=== PATIENT | female | born 1975 | race Caucasian/White ===

== ENCOUNTER 2017-01-26 18:41 | Emergency (ER) | payer BC ==
[~2017-01-26] VITALS: Ht 162.6 cm; Wt 48.7 kg
[~2017-01-26 18:41] MED LIST: LBT/100 PO; MTR600X PO; PRENTAB26 PO
[2017-01-26 18:43] VITALS: TEMP 37; Ht 162.6 cm; Wt 48.7 kg
[2017-01-26] MEDS ORDERED: SODIUM CHLORIDE 0.9% 1000ML 1,000 ML IV STA (19:20)
--- NOTE | 2017-01-26 19:22 | EMERGENCY ROOM VISIT NOTE ---
History Report prepared by Adelso: Sherlyn Simmons Under the Supervision of: Dr. Ciro Fitch M.D. First contact with patient: 18:48 Chief Complaint: HYPERTENSION Stated Complaint: TIGHT CHEST, HTN, DIZZY, SHAKEY, PELVIC/BACK PAIN History of Present Illness The patient is a 41 year old female who presents to the Emergency Room with complaints of persistent hypertension over the past several days. The patient has a 19 year history of hypertension and is currently medicated with atenolol and another medication that she cannot remember. She follows with her PCP regularly, most recently 5 days ago, and did not have any medication changes. Her blood pressure was normal at that time. With medication, her systolic blood pressure is between 120-130; however, it has been between 160-190 over the past several days. She notes that she has had sporadic increases in her blood pressure over the past month. She has not had any changes in her routine this week. About 3 hours ago, the patient developed constant chest tightness that radiates through her back. It does not worsen significantly with deep breaths. She also developed some dizziness at that time which has mostly subsided. The patient has a history of anxiety and notes that these symptoms do feel similar to prior anxiety attacks. She has not eaten much today due to not feeling well. She has been feeling mildly nauseous. She does not have any out of the ordinary stress. She denies chance of . She is not breast feeding. Denies recent travel, headache, shortness of breath, vomiting or other complaints. No personal history of blood clots. She is not on control. She is not a smoker. Source of History: patient Onset: several days ago Position: other (Global) Symptom Intensity: systolic 160-190 Quality: other (hypertension) Timing: other (persistent) Associated Symptoms: + nausea, No SOB, No headache, No vomiting Note: Other symptoms: chest tightness, dizziness Review of Systems See HPI for pertinent positives & negatives. A total of 10 systems reviewed and were otherwise negative. Past Medical & Surgical Medical Problems: (1) HTN (hypertension) Old medical records were reviewed. Nurse's notes were reviewed and I agree with. Family History No pertinent family history stated. Social History Smoking Status: Former Smoker Marital Status: Housing Status: lives with family Current/Historical Medications Scheduled Atenolol (Tenormin), 25 MG PO DAILY Benazepril (Lotensin), 20 MG PO DAILY Allergies Coded Allergies: Amoxicillin (Verified Allergy, Severe, HIVES, 01/26/17) Sulfa Antibiotics (Verified Allergy, Unknown, HIVES, 01/26/17) Physical Exam Vital Signs Date Time Temp Pulse Resp B/P Pulse Ox O2 Delivery O2 Flow Rate FiO2 01/26/17 21:11 88 18 132/87 98 Room Air 01/26/17 20:42 79 01/26/17 20:26 87 18 130/91 99 Room Air 01/26/17 19:36 76 18 141/93 100 Room Air 01/26/17 19:26 98 Room Air 01/26/17 18:43 37.0 95 16 160/92 99 Room Air Physical Exam General: Non-ill appearing middle aged female. Well developed well nourished in no acute distress, breathing comfortably on room air. Normal speech HEENT: Normal cephalic atraumatic. Pupils are equal round and reactive to light. Sclerae are anicteric. Extraocular movements are intact. Oropharynx is pink with moist mucous membranes. No swelling of the mouth lips or tongue. Neck: Supple with a midline trachea. No meningeal signs or stiffness, no JVD or bruits. No Stridor. Chest: Clear to auscultation bilaterally. No wheezes or rhonchi. No increased work of breathing. Heart: regular rate and rhythm. Abdomen: Soft nontender, nondistended without rebound guarding or rigidity. Extremities: No cyanosis clubbing or edema. No calf tenderness or assymetry Spine/Back. Non tender to palpation. No CVA tenderness Skin: Good turgor without rashes. Neurologic exam: Cranial nerves two through 12 are intact. Motor and sensation are intact and symmetrical throughout. Medical Decision & Procedures ER Provider Diagnostic Interpretation: Radiology results as stated below per my review and radiologist interpretation: CHEST ONE VIEW PORTABLE CLINICAL HISTORY: Atypical chest pain, hypertension, dizziness, shakiness. COMPARISON STUDY: No previous studies for comparison. FINDINGS: The cardiac and mediastinal contours are normal. There is no evidence of focal pulmonary consolidation. There is no evidence of failure. No pleural effusions are visualized.[ IMPRESSION: No active disease in the chest. Electronically signed by: Rakesh Santiago M.D. 01/26/2017 7:41 PM Dictated Date/Time: 01/26/2017 7:41 PM Laboratory Results 01/26/17 19:25 Red Blood Count 4.43, Mean Corpuscular Volume 86.2, Mean Corpuscular Hemoglobin 30.2, Mean Corpuscular Hemoglobin Concent 35.1, Mean Platelet Volume 12.6, Neutrophils (%) (Auto) 82.9, Lymphocytes (%) (Auto) 10.2, Monocytes (%) (Auto) 6.5, Eosinophils (%) (Auto) 0.2, Basophils (%) (Auto) 0.1, Neutrophils # (Auto) 7.52, Lymphocytes # (Auto) 0.93, Monocytes # (Auto) 0.59, Eosinophils # (Auto) 0.02, Basophils # (Auto) 0.01 01/26/17 19:25 Test 01/26/17 19:25 01/26/17 19:39 White Blood Count 9.08 K/uL (4.8-10.8) Red Blood Count 4.43 M/uL (4.2-5.4) Hemoglobin 13.4 g/dL (12.0-16.0) Hematocrit 38.2 % (37-47) Mean Corpuscular Volume 86.2 fL (80-100) Mean Corpuscular Hemoglobin 30.2 pg (25-34) Mean Corpuscular Hemoglobin Concent 35.1 g/dl (32-36) Platelet Count 117 K/uL (130-400) Mean Platelet Volume 12.6 fL (7.4-10.4) Neutrophils (%) (Auto) 82.9 % Lymphocytes (%) (Auto) 10.2 % Monocytes (%) (Auto) 6.5 % Eosinophils (%) (Auto) 0.2 % Basophils (%) (Auto) 0.1 % Neutrophils # (Auto) 7.52 K/uL (1.4-6.5) Lymphocytes # (Auto) 0.93 K/uL (1.2-3.4) Monocytes # (Auto) 0.59 K/uL (0.11-0.59) Eosinophils # (Auto) 0.02 K/uL (0-0.5) Basophils # (Auto) 0.01 K/uL (0-0.2) RDW Standard Deviation 39.2 fL (36.4-46.3) RDW Coefficient of Variation 12.3 % (11.5-14.5) Immature Granulocyte % (Auto) 0.1 % Immature Granulocyte # (Auto) 0.01 K/uL (0.00-0.02) Platelet Estimate DECREASED Echinocytes 1+ Anion Gap 14.0 mmol/L (3-11) Est Creatinine Clear Calc Drug Dose 88.9 ml/min Estimated GFR () 128.5 Estimated GFR (Non- 110.8 BUN/Creatinine Ratio 14.4 (10-20) Calcium Level 9.3 mg/dl (8.5-10.1) Total Bilirubin 0.3 mg/dl (0.2-1) Direct Bilirubin 0.1 mg/dl (0-0.2) Aspartate Amino Transf (AST/SGOT) 12 U/L (15-37) Alanine Aminotransferase (ALT/SGPT) 17 U/L (12-78) Alkaline Phosphatase 39 U/L (45-117) Total Protein 7.5 gm/dl (6.4-8.2) Albumin 4.4 gm/dl (3.4-5.0) Lipase 157 U/L (73-393) Thyroid Stimulating Hormone (TSH) 1.620 uIu/ml (0.300-4.500) Human Chorionic Gonadotropin, Qual NEG (NEG) Bedside D-Dimer 63 ng/mlFEU (0-450) Bedside Troponin I 0.000 ng/ml (0-0.045) Laboratory studies as stated above per my review. Medications Administered Medications (Trade) Dose Ordered Sig/Lynette Route Start Time Stop Time Status Last Admin Dose Admin Sodium Chloride (Nss 1000ml) 1,000 ml @ 999 mls/hr Q1H1M STAT IV 01/26/17 19:20 01/26/17 20:20 DC 01/26/17 19:30 999 MLS/HR ECG Indication: chest pain Rate (beats per minute): 75 Rhythm: normal sinus Findings: nonspecific-ST abn, no acute ischemic change, no ectopy Change: Repeat EKG: Normal sinus rhythm at [address] abnormality. No significant change compared to initial EKG. ED Course 1899: The patient was evaluated in room B10, and a complete history and physical examination were performed. 1919: Ordered NSS 1000 ml @ 999 mls/hr IV. 2024: I reassessed the patient. She was resting comfortably. 2103: Upon reevaluation, the patient is resting comfortably. I discussed the results and treatment plan with her. She verbalized agreement of the treatment plan. The patient was discharged home. Medical Decision Differential diagnosis includes hypertension, anxiety, acute coronary syndrome, PE, electrolyte or metabolic abnormality, thyroid disease. This patient comes in as described above. She was placed in room C2. She has a history of hypertension and comes in with some vague dizziness, chest discomfort as well as other symptoms. she looks well on exam and has stable vital signs. her blood pressure is minimally elevated. She's not hypoxemic. A chest x-ray was obtained and shows no congestive heart failure, pneumonia ,or pneumothorax. EKG does not show any definite ischemic changes and has no significant abnormalities. She was reassessed frequently,. Her platelets are found to be mildly low in the 110s however she tells me this is chronic and has been worked up. He continues to look well and is in no distress. Her troponin was 0 and her symptoms are atypical for cardiac disease. I did a second EKG that shows no change compared to the first. Her TSH is within normal limits. She has no acute electrolyte or metabolic abnormalities. Her d-dimer is normal and and a low pretest probably setting makes PE highly unlikely. This possibly could be anxiety she does have family history otherwise do not think is likely cardiac. I talked her about this she does feel to go home with is reasonable to close follow-up. She's to monitor blood pressure and log it and follow up with her regular doctor on Saturday for recheck. Impression Primary Impression: HTN (hypertension) Additional Impression: Dizziness Scribe Attestation The scribe's documentation has been prepared under my direction and personally reviewed by me in its entirety. I confirm that the note above accurately reflects all work, treatment, procedures, and medical decision making performed by me. Departure Information Dispostion Home / Self-Care Referrals Saji Johnson MD (PCP) Patient Instructions My [facility] Additional Instructions Rest. Drink plenty of fluids. Return if: Increasing pain, worsening of symptoms, fever or chills, shortness breath, any new problems concerns Follow-up with your doctor in 1-2 days for recheck Problem Qualifiers
[2017-01-26 19:26] VITALS: O2SAT 98
[2017-01-26] MEDS ORDERED: ATEN-173 PO (19:27)
[2017-01-26] MEDS ORDERED: BENA20TA14 PO (19:27)
--- NOTE | 2017-01-26 19:43 | DIAGNOSTIC IMAGING REPORT ---
CHEST ONE VIEW PORTABLE CLINICAL HISTORY: Atypical chest pain, hypertension, dizziness, shakiness. COMPARISON STUDY: No previous studies for comparison. FINDINGS: The cardiac and mediastinal contours are normal. There is no evidence of focal pulmonary consolidation. There is no evidence of failure. No pleural effusions are visualized.[ IMPRESSION: No active disease in the chest. Electronically signed by: Rakesh Santiago M.D. 01/26/2017 7:41 PM Dictated Date/Time: 01/26/2017 7:41 PM
[2017-01-26 19:55] LABS: BASO % 0.1 %; BASO ABS # 0.01 K/uL (0-0.2); COMPLETE YES; ECHINOCYTES 1+; EOS % 0.2 %; HEMATOCRIT 38.2 % (37-47); IG% 0.1 %; LYMPH % 10.2 %; LYMPH ABS # 0.93 K/uL (1.2-3.4); MEAN CELL VOLUME 86.2 fL (80-100); MEAN CORPUSCULAR HEMOGLOBIN 30.2 pg (25-34); MEAN CORPUSCULAR HGB CONC 35.1 g/dl (32-36); MEAN PLATELET VOLUME 12.6 fL (7.4-10.4); MONO % 6.5 %; NEUT % 82.9 %; PLATELET COUNT 117 K/uL (130-400); PLT ESTIMATE DECREASED; RED BLOOD COUNT 4.43 M/uL (4.2-5.4); WHITE BLOOD COUNT 9.08 K/uL (4.8-10.8)
[2017-01-26 19:57] LABS: BUN/CREATININE RATIO 14.4 (10-20); CALCIUM 9.3 mg/dl (8.5-10.1); CREATININE 0.64 mg/dl (0.60-1.20); POTASSIUM 3.5 mmol/L (3.5-5.1)
[2017-01-26 20:02] LABS: PREG INTERNAL NEGATIVE QC NEG CLEAR BACKGROUND; PREG INTERNAL POSITIVE QC POS CONTROL LINE
[2017-01-26 20:06] LABS: THYROID STIMULATING HORMONE 1.62 uIu/ml (0.300-4.500)
[2017-01-26 21:11] VITALS: BP 132/87; PULSE 88; O2SAT 98
== END 2017-01-26 21:13 | disposition home or self-care (01) ==
LOC: C.EDB 18:42 → C.EDC 21:13
DX: I10 Essential (primary) hypertension (principal); R42 Dizziness and giddiness; Z87.891 Personal history of nicotine dependence; Z79.899 Other long term (current) drug therapy